=== PATIENT | female | born 1970 | race African-American/Black ===

== ENCOUNTER 2020-07-28 17:40 | Emergency (ER) | payer OTHER ==
[2020-07-28 18:06] VITALS: BP 118/80; PULSE 92; TEMP 97.2; BMI 32.8
[2020-07-28] MEDS ORDERED: DIPHTH,PERTUSS(ACELL),TET 0.5 ML DISP.SYRIN IM ONE ×2 (18:35→20:20)
[2020-07-28] MEDS ORDERED: ACETAMINOPHEN 500 MG TABLET (FP) PO ONE (18:36)
[2020-07-28] MEDS ORDERED: ACETAMINOPHEN 500 MG TABLET (FP) ONE (20:19)
== END 2020-07-28 20:59 | disposition home or self-care (01) ==
LOC: JER 17:40 → JERFT 17:40
PROC: 3E0234Z Introduction of Serum, Toxoid and Vaccine into Muscle, Percutaneous Approach (ICD-10-PCS; principal; 2020-07-28)
DX: M25.561 Pain in right knee (principal); M79.674 Pain in right toe(s)
CPT/HCPCS: 73562-TC-RT-FY; 73590-TC-RT-FY; 73610-TC-RT-FY; 73630-TC-RT-FY; 90715; 99285-25